=== PATIENT | female | born 1940 | race Caucasian/White ===

== ENCOUNTER → 2020-05-08 | Outpatient (CLI) | payer OTHER | LOC: M.LAB 15:21 | PROVIDERS: ATTEND Physician Assistant | DX: Z01.812 Encounter for preprocedural laboratory examination (principal); Z20.828 Contact with and (suspected) exposure to other viral communicable diseases; G56.02 Carpal tunnel syndrome, left upper limb ==

== ENCOUNTER → 2020-10-03 | Outpatient (CLI) | payer OTHER, MEDICARE ==
[~2020-10-03] MED LIST: BALSALAZIDE DI750 M1 PO; COZAAR 25 MG TA25 M1 PO; DESYREL150 MG PO; OSTEO BI-FLEX1 EAC1 PO; ROWASA RECTAL; SUPER THERAVIT1 EACH PO; ZOCOR20 MG PO
[2020-10-03 11:20] LABS: ABSOLUTE EOSINOPHILS 0.1 thou/uL (0.0-0.7); ABSOLUTE LYMPHOCYTES 1.3 thou/uL (0.8-5.3); ABSOLUTE MONOCYTES 0.4 thou/uL (0.0-1.2); ABSOLUTE NEUTROPHILS 2.6 thou/uL (1.6-8.1); BASOPHILS 0.4 %; EOSINOPHILS 3.3 %; HEMATOCRIT 41.8 % (37.0-47.0); HEMOGLOBIN 13.7 gm/dL (12.0-15.0); LYMPHOCYTES 28.9 %; MCH 29.8 pg (26.0-34.0); MCHC 32.7 g/dL (28.0-37.0); MCV 91.1 fL (80.0-100.0); MONOCYTES 8.6 %; MPV 7.5 fl. (7.2-11.1); NUCLEATED RBCS 0 /100WBC; PLATELET COUNT* 251 thou/uL (150-400); POLYS 58.8 %; RBC 4.59 mil/uL (4.20-5.00); RDW-CV 15.2 % (10.5-14.5); WBC 4.3 thou/uL (4.0-11.0)
[2020-10-03 11:31] LABS: APTT 22.2 Seconds (25.0-31.3); INR 0.9; PROTIME 9.9 Seconds (9.20-11.50)
[2020-10-03 11:33] LABS: ALBUMIN 3.4 g/dL (3.4-5.0); CALCIUM 8.9 mg/dL (8.5-10.1); CREATININE 0.6 mg/dL (0.6-1.3); POTASSIUM 4.1 mmol/L (3.5-5.1); TOTAL BILIRUBIN 0.5 mg/dL (<0.1-1.0); TOTAL PROTEIN 6.9 g/dL (6.4-8.2)
[2020-10-03 13:28] LABS: ESR (SEDRATE) 55 mm/hr (0-30)
== END | disposition home or self-care (01) ==
LOC: M.LAB 10:52
PROVIDERS: ATTEND Orthopaedic Surgery
DX: Z01.812 Encounter for preprocedural laboratory examination (principal)

== ENCOUNTER 2020-10-07 06:07 | Observation (INO) | payer OTHER, MEDICARE ==
[~2020-10-07] VITALS: Ht 142 cm; Wt 64.4 kg
--- NOTE | ~2020-10-07 | OP ---
[address] [address] OPERATIVE REPORT Name: MARY GREGORY Room: [address] Simran Louis#: [id number] Admission: 10/07/20 Attend Phys: Kleber Lanier DO Discharge: Date of : 44 Report #: [id number] THIS REPORT FOR: cc: Krista Harmon MD, Lin W. MD Paul, Robert F. DO ~ DOC #: [id number] Chris Parry DO DATE OF SURGERY: 10/07/2020 PREOPERATIVE DIAGNOSIS: Advanced degenerative joint disease, right hip. POSTOPERATIVE DIAGNOSIS: Advanced degenerative joint disease, right hip. PROCEDURE PERFORMED: Right total hip arthroplasty using Biomet Taperloc system following components: 1. A 54 mm G7 finned acetabular shell. 2. A 40 mm high wall liner. 3. A 6.5 mm bone screws length 25 and 30 mm. 4. Size 10 high offset Taperloc complete femoral stem. 5. A 40 mm head with a -6 neck adapter. SURGEON: Kleber Lanier DO. ASSISTANTS: 1. Senait Mcdaniel PA-C 2. Chris Parry DO TYPE OF ANESTHESIA: General. ESTIMATED BLOOD LOSS: 300. SPECIMENS: None. COMPLICATIONS: None. DISPOSITION: Stable to PACU. ANTIBIOTICS: 2 grams IV Ancef preop. INDICATIONS: The patient is a 80-year-old female. We have followed her in clinic for quite some time regarding right hip pain. Her exam and imaging is consistent with advanced DJD. She tried and failed extensive conservative measures. She did have pain on a daily basis, interfering with her ADLs. Therefore, I recommend she will undergo total hip arthroplasty. [address] [address] OPERATIVE REPORT Name: MARY GREGORY Room: [address] Simran Louis#: [id number] Admission: 10/07/20 Attend Phys: Kleber Lanier DO Discharge: Date of : 44 Report #: [id number] DESCRIPTION OF PROCEDURE: The patient was seen in the preoperative area. Written consent was obtained. The operative site was marked. The patient was brought back to the operative suite, given benefit of a general anesthetic. Both feet were placed in the well padded boot and subsequently into the spar. Right lower extremity was then prepped and draped in normal sterile fashion. Surgical timeout was performed. Correct side, site and procedure were verified. The patient was in agreement. The procedure began with injection of orthopedic cocktail around the operative site. This was injected the remainder of the procedure in the different layers. We utilized a standard anterior incision. Sharp dissection through skin. We used Bovie to dissect down through the subcutaneous fat to the fascial layer. A new knife was used to create a ya incision. The remainder of the visualized fascia was released in line with the incision. We found the interval between the tensor and the rectus. We identified our branches of the circumflex vessels, which were managed with Aquamantys as well as Bovie. We placed the retractors appropriately around the proximal femur. We pretreated the capsule with Aquamantys. We performed standard anterior capsulectomy. We made a femoral neck cut 1 cm proximal to the lesser trochanter. Napkin ring cut was created. The bone was removed. We turned our attention to the acetabulum. The remainder of the labral tissue as well as the ligamentum from the fovea. We sequentially reamed up to a size 53, which gave us the appropriate fit. We placed our acetabular shell with appropriate inclination and version. We drilled and inserted the appropriate length screw in the posterior superior quadrant. C-arm fluoroscopy confirmed this. We placed a high wall in the anterior superior position. We then turned our attention to the femur. A 120 degrees of external rotation was achieved. Retractors were placed appropriately. The leg was extended and adducted maximally. We placed the hook of the bed in order to gain better visualization. We prepped the proximal femur with a box osteotome followed by the Rat Tail rasp and sequentially broached up to a size 10. We trialed with a high offset -3. The leg was brought back to neutral position and the hip was reduced. Images demonstrated the appropriate size of the stem as well as reasonable leg length. We tested stability which was excellent. At this point, we dislocated the hip, extended and adducted and removed all trial components. Wound was thoroughly irrigated. Vancomycin powder was applied to the wound. We opened and impacted the final size 10 Taperloc complete stem. It sat slightly proud from the trial. We therefore opened and impacted the final -6 neck adapter with a 40 mm head. Final reduction was performed. Final images obtained and saved to the PACS system. Wound was thoroughly irrigated. The fascial layer was closed with #1 Stratafix running fashion. Subcutaneous tissue was closed with 2-0 Monocryl in simple inverted fashion. Skin was reapproximated with a running 3-0 Stratafix and Exofin skin glue. Mepilex was placed. The patient was awoken from anesthesia and transferred to PACU in stable condition. No complications. Needle and sponge counts correct x 2. Dr. Lanier was present for all critical [place] [id number] OPERATIVE REPORT Name: COLTMARY Rob Room: [address] Simran Louis#: [id number] Admission: 10/07/20 Attend Phys: Kleber Lanier DO Discharge: Date of : 44 Report #: [id number] DO HEAVEN Chrsitopher/SHAHRAM By: [id number] Lanier DO /kiel
[2020-10-07 11:00] VITALS: BP 139/83
[2020-10-07 15:45] VITALS: BP 139/52
[2020-10-07 21:07] VITALS: BP 115/51
--- NOTE | 2020-10-07 21:15 | NUR ---
Pt arrived to floor around 1545. Pt stated she just wanted to nap and was not in any pain. Pt started on fluids and rested in bed. Pt woke up for dinner and ate it all. Pt given pain meds as she was "starting to feel it". Pt spoke with her daughter on the phone after eating. Bed in low position, call light within reach.
[2020-10-08] VITALS (10 sets, daily range): BP systolic 110–119; BP diastolic 49–54
[2020-10-08 05:24] LABS: HEMATOCRIT 30.7 % (37.0-47.0); HEMOGLOBIN 10.4 gm/dL (12.0-15.0)
--- NOTE | 2020-10-08 05:56 | NUR ---
PATIENT HAS RESTED WELL THROUGHOUT MOST OF THE NIGHT WITH TIMES OF RESTLESSNESS. VSS ON RA. PAIN CONTROLLED WITH ORAL PAIN MEDICATIONS AND CHARTED. ASSESSMENT CHARTED. PATIENT UP WITH ASSIST X 1 TO THE BSC AND DOING WELL. DRESSING TO RIGHT HIP IS C/D/I, ANTONIO HOSE AND SCD'S IN PLACE. FALL PRECAUTIONS IN PLACE AND HOURLY ROUNDS MADE. WILL CONTINUE WITH PLAN OF CARE AND NURSING TO MONITOR.
[2020-10-08] MEDS ORDERED: ELIQUIS5 MG PO (07:32)
[2020-10-08] MEDS ORDERED: OXYCODONE HCL 55 MG PO (07:33)
--- NOTE | 2020-10-08 10:59 | NUR ---
THIS NURSE AGREES WITH ASSESSMENT
--- NOTE | 2020-10-08 13:55 | NUR ---
Pt is A&O. Resides at home with . Dtr will assist at dc. Pt normally independent. Pt has a walker and cane that she can use if needed. HH arranged through [facility], faxed dc orders and referral. Plan dc to home today with HH post therapy evnorah. CM checked the cost of Pt's Eliquis prescription, it will be $67, updated Pt.
--- NOTE | 2020-10-08 15:18 | NUR ---
PATIENT DISCHARGE AT THIS TIME, VIA WHEELCHAIR, ACCOMPANIED BY NURSE TECH TO PRIVATE VEHICLE. IV DC'D, COTTON BALL AND BANDAID PLACED TO SITE, PATIENT TOLERATED WITHOUT DIFFICULTIES. INCISION TO RIGHT HIP, UNABLE TO ASSESS DUE TO DRESSING. DRESSING C/D/I. DISCHARGE INSTRUCTIONS REVIEWED WITH PATIENT, PATIENT ACKNOLEDGED UNDERSTANDING. ALL QUESTIONS AND CONCERNS ADDRESSED.
== END 2020-10-08 15:27 | disposition home or self-care (01) ==
LOC: M.ORTHSURG → M.TBA 10:29 → M.ORTHSURG 10:29 → M.TBA 10:29 → M.ORTHSURG 10:53 → M.TBA 16:56 → M.ORTHSURG 17:34
PROVIDERS: ADMIT Internal Medicine; ATTEND Orthopaedic Surgery
DX: M16.11 Unilateral primary osteoarthritis, right hip (principal); K51.90 Ulcerative colitis, unspecified, without complications; Z90.49 Acquired absence of other specified parts of digestive tract; Z98.890 Other specified postprocedural states